=== PATIENT | male | born 1970 | race American Indian/Alaskan Native ===

== ENCOUNTER 2021-10-12 22:59 | Emergency (ER) | payer BC, OTHER | END 2021-10-13 00:42 | LOC: JP.ED 22:59 | DX: E11.65 Type 2 diabetes mellitus with hyperglycemia (principal); E87.1 Hypo-osmolality and hyponatremia; F17.200 Nicotine dependence, unspecified, uncomplicated; I10 Essential (primary) hypertension; K21.9 Gastro-esophageal reflux disease without esophagitis; E11.9 Type 2 diabetes mellitus without complications; Z88.0 Allergy status to penicillin | CPT/HCPCS: 36415; 80048; 99283; 99285 ==

== ENCOUNTER 2024-09-14 20:17 | Inpatient (IN) | payer MEDICAID ==
[2024-09-14] MEDS: Sodium Chloride 0.9% 1,000 ML IV STA (22:01)
[2024-09-14 22:02] LABS: BASOPHILS ABSOLUTE AUTO 0.05 K/uL (0.00-0.10); BASOPHILS PERCENT AUTO 0.3 % (0.1-1.3); EOSINOPHILS ABSOLUTE AUTO 0.12 K/uL (0.00-0.40); EOSINOPHILS PERCENT AUTO 0.7 % (0.0-5.4); HEMOGLOBIN 12.8 g/dL (12.9-16.9); IMMATURE GRAN ABSOLUTE AUTO 0.07 K/uL (0.00-0.23); IMMATURE GRAN PERCENT AUTO 0.4 % (0.0-0.7); LYMPHOCYTES ABSOLUTE AUTO 2.62 K/uL (0.8-3.3); LYMPHOCYTES PERCENT AUTO 14.5 % (11.4-47.7); MEAN CORPUSCULAR HEMOGLOBIN 29.2 pg (31.6-35.5); MEAN CORPUSCULAR HGB CONC 33.7 g/dL (31.6-35.5); MEAN CORPUSCULAR VOLUME 86.6 fL (81.4-99.0); MONOCYTES ABSOLUTE AUTO 1.23 K/uL (0.20-0.90); MONOCYTES PERCENT AUTO 6.8 % (3.3-12.6); NEUTROPHILS ABSOLUTE AUTO 13.93 K/uL (1.0-7.6); NEUTROPHILS PERCENT AUTO 77.3 % (40.0-78.1); PLATELET COUNT,PLT 406 K/uL (130-375); RED BLOOD CELL COUNT 4.39 M/uL (4.14-5.76)
[2024-09-14] MEDS: Ondansetron 4 MG/2 ML SDV IVPUSH ONE (22:08)
[2024-09-14 22:24] LABS: APPEARANCE,URINE SLIGHTLY CLOUDY (CLEAR); BILIRUBIN,URINE NEGATIVE (NEGATIVE); COLOR,URINE YELLOW (YELLOW); GLUCOSE,URINE NEGATIVE (NEGATIVE); KETONES,URINE NEGATIVE (NEGATIVE); LEUKOCYTE ESTERASE,URINE NEGATIVE (NEGATIVE); NITRITE,URINE NEGATIVE (NEGATIVE); OCCULT BLOOD,URINE NEGATIVE (NEGATIVE); PH,URINE 5.5 (5.0-8.0); PROTEIN,URINE 30 mg/dL (NEGATIVE); UROBILINOGEN,URINE 0.2 EU/dL (0.2-1.0)
[2024-09-14 22:25] LABS: A/G RATIO 0.9 (1.2-2.2); ALANINE AMINOTRANSFERASE,ALT 13 U/L (12-78); ALBUMIN 3.6 g/dL (3.4-5.0); ALKALINE PHOSPHATASE 92 U/L (46-116); ANION GAP 6.9 mmol/L (5.0-14.0); ASPARTATE AMNIOTRANSFERASE,AST 8 U/L (15-37); BILIRUBIN TOTAL 0.2 mg/dL (0.2-1.0); BLOOD UREA NITROGEN,BUN 16 mg/dL (7-18); CALCIUM 9.1 mg/dL (8.5-10.1); CARBON DIOXIDE,CO2 29 mmol/L (21-32); CHLORIDE,CL 107 mmol/L (100-108); CREATININE 0.9 mg/dL (0.8-1.3); ESTIMATED GFR 103 mL/min (>60); GLUCOSE RANDOM 150 mg/dL (74-106); POTASSIUM,K 4.3 mmol/L (3.6-5.2); PROTEIN TOTAL,TP 7.5 g/dL (6.4-8.2); SODIUM,NA 143 mmol/L (140-148)
[2024-09-14 22:31] LABS: AMORPHOUS SEDIMENT,URINE NOT SEEN; BACTERIA,URINE FEW; EPITHELIAL CELLS,URINE FEW; MUCUS,URINE FEW; RBC,URINE NOT SEEN (0-5); WBC,URINE 0-5 (0-5)
[2024-09-14 22:32] LABS: AMPHETAMINES SCREEN, URINE NEGATIVE (NEGATIVE); BARBITURATE SCREEN,URINE NEGATIVE (NEGATIVE); BENZODIAZEPINES SCREEN,URINE NEGATIVE (NEGATIVE); METHADONE SCREEN, URINE NEGATIVE (NEGATIVE); METHAMPHETAMINES SCREEN, URINE NEGATIVE (NEGATIVE); OXYCODONE SCREEN,URINE NEGATIVE (NEGATIVE); PROPOXYPHENE SCREEN,URINE NEGATIVE (NEGATIVE); THC SCREEN,URINE 50 NG/ML NEGATIVE (NEGATIVE)
[2024-09-14] MEDS: Iopamidol 612 MG/ML 100 ML Bottle IV SCH (22:43)
[2024-09-14] MEDS: Sodium Chloride 0.9% 10 ML Syringe FLUSH ONE (22:43)
[2024-09-14] MEDS: Sodium Chloride 0.9% 80 ML IV SCH (22:44)
[2024-09-15] MEDS: Morphine 2 MG/ML SYRINGE IVPUSH ONE (00:49)
[2024-09-15] MEDS ORDERED: Glucagon,Human Recombinant 1 MG Vial IM PRN (01:24)
[2024-09-15] MEDS ORDERED: Naloxone 0.4 MG/ML SDV IVPUSH PRN (01:24)
[2024-09-15] MEDS ORDERED: Acetaminophen 325 MG Tab PO PRN (01:24)
[2024-09-15] MEDS ORDERED: Insulin Lispro 100 Unit/ML 3 ML KwikPen SUBCUT SCH (01:24)
[2024-09-15] MEDS ORDERED: 50% Dextrose in Water 50 ML Syringe IVPUSH PRN (01:24)
[2024-09-15] MEDS ORDERED: Promethazine 25 MG Tab PO PRN (01:24)
[2024-09-15] MEDS: oxyCODONE 5 MG Tab PO PRN (02:00)
[2024-09-15] MEDS: Pantoprazole 40 MG Vial IVPUSH SCH (02:00)
[2024-09-15] MEDS: Gabapentin 300 MG Cap PO ONE (02:00)
[2024-09-15] MEDS: Sodium Chloride 0.9% 1,000 ML IV SCH (02:01)
[2024-09-15] MEDS: metroNIDAZOLE/Normal Saline 500 MG in Premix Bag 1 BAG IV SCH ×2 (02:06→10:42)
[2024-09-15] MEDS: Morphine 2 MG/ML SYRINGE IVPUSH PRN (03:07)
[2024-09-15] MEDS: Ciprofloxacin in D5W 400 MG in Premix Bag 1 BAG IV SCH (03:11)
[2024-09-15 06:05] LABS: BASOPHILS ABSOLUTE AUTO 0.06 K/uL (0.00-0.10); BASOPHILS PERCENT AUTO 0.3 % (0.1-1.3); EOSINOPHILS ABSOLUTE AUTO 0.05 K/uL (0.00-0.40); EOSINOPHILS PERCENT AUTO 0.3 % (0.0-5.4); HEMATOCRIT 36.8 % (38.4-49.7); HEMOGLOBIN 12.4 g/dL (12.9-16.9); IMMATURE GRAN ABSOLUTE AUTO 0.06 K/uL (0.00-0.23); IMMATURE GRAN PERCENT AUTO 0.3 % (0.0-0.7); LYMPHOCYTES ABSOLUTE AUTO 2.19 K/uL (0.8-3.3); LYMPHOCYTES PERCENT AUTO 12.3 % (11.4-47.7); MEAN CORPUSCULAR HEMOGLOBIN 29.2 pg (31.6-35.5); MEAN CORPUSCULAR HGB CONC 33.7 g/dL (31.6-35.5); MEAN CORPUSCULAR VOLUME 86.8 fL (81.4-99.0); MONOCYTES ABSOLUTE AUTO 1.21 K/uL (0.20-0.90); MONOCYTES PERCENT AUTO 6.8 % (3.3-12.6); NEUTROPHILS ABSOLUTE AUTO 14.21 K/uL (1.0-7.6); PLATELET COUNT,PLT 374 K/uL (130-375); RED BLOOD CELL COUNT 4.24 M/uL (4.14-5.76); WHITE BLOOD CELL COUNT,WBC 17.8 K/uL (3.2-11.0)
[2024-09-15 06:18] LABS: ANION GAP 6.9 mmol/L (5.0-14.0); CALCIUM 8.9 mg/dL (8.5-10.1); CREATININE 0.7 mg/dL (0.8-1.3); EST CRCL DRUG DOSING (CG) 125.93 mL/min
[2024-09-15] MEDS: Nicotine 14 MG/24 Hr Patch TRDERM SCH (08:13)
[2024-09-15] MEDS: Magnesium Oxide 400 MG Tab PO SCH (08:13)
[2024-09-15] MEDS: Prenatal Multivitamin with Calcium/Folic Acid/Iron Tab PO SCH (08:13)
[2024-09-15] MEDS: Insulin Glargine,Human Rec. Analog 100 Units/ML 3 ML Pen SUBCUT SCH (08:18)
[2024-09-15] MEDS ORDERED: Sodium Chloride 0.9% 10 ML Syringe IV PRN (10:13)
[2024-09-15] MEDS ORDERED: Ciprofloxacin in D5W 400 MG in Premix Bag 1 BAG IV SCH (15:00)
[2024-09-16] MEDS ORDERED: Pantoprazole 40 MG Vial IVPUSH SCH (07:30)
[2024-09-16] MEDS ORDERED: Pantoprazole 40 MG Tab.CR PO SCH (07:30)
== END 2024-09-15 12:51 | DRG 690 ==
LOC: JP.ED 20:17 → JP.MS 09-15 00:33
PROVIDERS: ADMIT Internal Medicine; ATTEND Internal Medicine
DX: N30.00 Acute cystitis without hematuria (principal); K86.1 Other chronic pancreatitis; K52.9 Noninfective gastroenteritis and colitis, unspecified; H54.7 Unspecified visual loss; I10 Essential (primary) hypertension; F17.210 Nicotine dependence, cigarettes, uncomplicated; E11.40 Type 2 diabetes mellitus with diabetic neuropathy, unspecified; E11.65 Type 2 diabetes mellitus with hyperglycemia; F11.90 Opioid use, unspecified, uncomplicated; Z88.0 Allergy status to penicillin; Z79.899 Other long term (current) drug therapy; Z79.4 Long term (current) use of insulin; Z79.84 Long term (current) use of oral hypoglycemic drugs; Z90.49 Acquired absence of other specified parts of digestive tract
CPT/HCPCS: 36415; 71046; 71046-26; 74177; 80048; 80053; 80305-QW; 81001; 82947; 83605; 83690; 85025; 87040; 99222; 99238; A9270-GY; J0744; J1815; J1815-GY; J1836; J2270; J2405; J2470; J7030; Q9967

== ENCOUNTER 2024-09-16 13:09 | Emergency (ER) | payer MEDICAID ==
[2024-09-16 14:03] LABS: BASOPHILS ABSOLUTE AUTO 0.04 K/uL (0.00-0.10); BASOPHILS PERCENT AUTO 0.4 % (0.1-1.3); EOSINOPHILS ABSOLUTE AUTO 0.07 K/uL (0.00-0.40); EOSINOPHILS PERCENT AUTO 0.7 % (0.0-5.4); HEMATOCRIT 37.6 % (38.4-49.7); HEMOGLOBIN 12.9 g/dL (12.9-16.9); IMMATURE GRAN ABSOLUTE AUTO 0.03 K/uL (0.00-0.23); IMMATURE GRAN PERCENT AUTO 0.3 % (0.0-0.7); LYMPHOCYTES ABSOLUTE AUTO 2.23 K/uL (0.8-3.3); LYMPHOCYTES PERCENT AUTO 23.1 % (11.4-47.7); MEAN CORPUSCULAR HEMOGLOBIN 29.5 pg (31.6-35.5); MEAN CORPUSCULAR HGB CONC 34.3 g/dL (31.6-35.5); MONOCYTES ABSOLUTE AUTO 0.66 K/uL (0.20-0.90); MONOCYTES PERCENT AUTO 6.8 % (3.3-12.6); NEUTROPHILS ABSOLUTE AUTO 6.62 K/uL (1.0-7.6); NEUTROPHILS PERCENT AUTO 68.7 % (40.0-78.1); PLATELET COUNT,PLT 383 K/uL (130-375); RED BLOOD CELL COUNT 4.37 M/uL (4.14-5.76); WHITE BLOOD CELL COUNT,WBC 9.7 K/uL (3.2-11.0)
[2024-09-16 14:07] LABS: APPEARANCE,URINE CLEAR (CLEAR); BILIRUBIN,URINE SMALL (NEGATIVE); COLOR,URINE YELLOW (YELLOW); GLUCOSE,URINE NEGATIVE (NEGATIVE); KETONES,URINE TRACE mg/dL (NEGATIVE); LEUKOCYTE ESTERASE,URINE NEGATIVE (NEGATIVE); NITRITE,URINE NEGATIVE (NEGATIVE); OCCULT BLOOD,URINE NEGATIVE (NEGATIVE); PROTEIN,URINE 30 mg/dL (NEGATIVE); UROBILINOGEN,URINE 0.2 EU/dL (0.2-1.0)
[2024-09-16 14:17] LABS: AMORPHOUS SEDIMENT,URINE OCCASIONAL; BACTERIA,URINE NOT SEEN; EPITHELIAL CELLS,URINE OCCASIONAL; MUCUS,URINE MODERATE; RBC,URINE NOT SEEN (0-5); WBC,URINE 0-5 (0-5)
[2024-09-16 14:23] LABS: A/G RATIO 0.9 (1.2-2.2); ALANINE AMINOTRANSFERASE,ALT 13 U/L (12-78); ALBUMIN 3.5 g/dL (3.4-5.0); ALKALINE PHOSPHATASE 95 U/L (46-116); ANION GAP 9.8 mmol/L (5.0-14.0); ASPARTATE AMNIOTRANSFERASE,AST 10 U/L (15-37); BILIRUBIN TOTAL 0.2 mg/dL (0.2-1.0); BLOOD UREA NITROGEN,BUN 13 mg/dL (7-18); CALCIUM 8.9 mg/dL (8.5-10.1); CARBON DIOXIDE,CO2 27 mmol/L (21-32); CHLORIDE,CL 104 mmol/L (100-108); CREATININE 1.1 mg/dL (0.8-1.3); EST CRCL DRUG DOSING (CG) 80.64 mL/min; ESTIMATED GFR 81 mL/min (>60); GLUCOSE RANDOM 204 mg/dL (74-106); POTASSIUM,K 3.7 mmol/L (3.6-5.2); PROTEIN TOTAL,TP 7.6 g/dL (6.4-8.2); SODIUM,NA 141 mmol/L (140-148)
== END 2024-09-16 15:20 | disposition home or self-care (01) ==
LOC: JP.ED 13:09
DX: K52.9 Noninfective gastroenteritis and colitis, unspecified (principal); I10 Essential (primary) hypertension; E11.9 Type 2 diabetes mellitus without complications; F17.210 Nicotine dependence, cigarettes, uncomplicated; Z88.0 Allergy status to penicillin; Z88.8 Allergy status to other drugs, medicaments and biological substances; Z79.4 Long term (current) use of insulin; Z79.84 Long term (current) use of oral hypoglycemic drugs; Z79.899 Other long term (current) drug therapy; Z90.49 Acquired absence of other specified parts of digestive tract
CPT/HCPCS: 36415; 80053; 81001; 85025; 99284